=== PATIENT | female | born 1970 | race Two or more races ===

== ENCOUNTER 2016-03-10 11:12 | Emergency (ER) | payer MEDICAID ==
[~2016-03-10] VITALS: Ht 152.4 cm; Wt 67.1 kg
[2016-03-10 11:58] LABS: BASOPHILS % (AUTO) 0.5 % (0.0-2.0); DIFF TOTAL % 100 %; EOSINOPHILS # (AUTO) 0.1 /CMM (0.0-0.7); EOSINOPHILS % (AUTO) 2.3 % (0.0-6.0); HEMATOCRIT 39 % (33-45); HEMOGLOBIN 13.2 g/dL (11.5-14.8); LYMPHOCYTES # (AUTO) 1.4 /CMM (0.8-4.8); LYMPHOCYTES % (AUTO) 30.9 % (20.0-44.0); MEAN CORPUSCULAR HEMOGLOBIN 28 PG (26.0-33.0); MEAN CORPUSCULAR HGB CONC 34 g/dl (31.0-36.0); MEAN CORPUSCULAR VOLUME 84 fL (82-100); MONOCYTES # (AUTO) 0.4 /CMM (0.1-1.30); MONOCYTES % (AUTO) 7.9 % (2.0-12.0); NEUTROPHILS # (AUTO) 2.6 /CMM (1.8-8.9); NEUTROPHILS % (AUTO) 58.4 % (43.0-81.0); PLATELET COUNT (AUTO) 246 /CMM (150-450); RED BLOOD CELL COUNT(AUTO) 4.65 MIL/uL (4.0-5.2); WHITE BLOOD COUNT (AUTO) 4.5 K/uL (4.3-11.0)
[2016-03-10 12:01] LABS: CALCIUM, SERUM 9.1 mg/dL (8.5-10.1); CREATININE 0.7 mg/dL (0.6-1.3); POTASSIUM 3.8 mmol/L (3.5-5.1)
[2016-03-10 12:07] LABS: ALBUMIN 3.7 g/dL (3.4-5.0); BILIRUBIN,DIRECT 0.1 mg/dL (0.0-0.2); BILIRUBIN,TOTAL 0.3 mg/dL (0.2-1.0); INDIRECT BILIRUBIN 0.2 mg/dL (0.0-1.1); TOTAL PROTEIN, SERUM 7.4 g/dL (6.4-8.2)
[2016-03-10 12:23] LABS: KETONES,URINE Negative (NEGATIVE); LEUKOCYTE ESTERASE ,URINE Negative (NEGATIVE); PREGNANCY TEST URINE QUAL NEGATIVE (NEGATIVE)
[2016-03-10 12:28] LABS: ADD UA MICROSCOPIC YES
[2016-03-10 12:36] LABS: ADD URINE CULTURE NO; RBC,URINE 0-2 /HPF (0-2); WBC,URINE 0-2 /HPF (0-3)
[2016-03-10 14:02] VITALS: BP 138/70
== END 2016-03-10 14:02 | disposition home or self-care (01) ==
LOC: ER 11:15
DX: R10.30 Lower abdominal pain, unspecified (principal); E03.9 Hypothyroidism, unspecified; F10.20 Alcohol dependence, uncomplicated
CPT/HCPCS: 36415; 80048-TC; 80076-TC; 81000-TC; 83690-TC; 84703-TC; 85025-TC; A4606; Z7610

== ENCOUNTER 2016-03-14 13:21 | Emergency (ER) | payer MEDICAID ==
[~2016-03-14] VITALS: Ht 152.4 cm; Wt 67.1 kg
[2016-03-14 13:27] VITALS: BP 141/87
[2016-03-14] MEDS ORDERED: ACETAMINOPHEN ES 500 MG TABLET ONE (13:40)
[2016-03-14] MEDS ORDERED: ACETAMINOPHEN ES 500 MG TABLET PO ONE (14:00)
== END 2016-03-14 14:44 | disposition home or self-care (01) ==
LOC: ER 13:23
DX: J11.1 Influenza due to unidentified influenza virus with other respiratory manifestations (principal); E05.90 Thyrotoxicosis, unspecified without thyrotoxic crisis or storm
CPT/HCPCS: 87804 ×2; 99284; A4606; Z7610; 87400

== ENCOUNTER 2016-04-15 17:43 | Emergency (ER) | payer SELFPAY ==
[~2016-04-15] VITALS: Ht 152.4 cm; Wt 68.9 kg
[2016-04-15 17:57] VITALS: BP 132/68
[2016-04-15] MEDS ORDERED: diphenhydrAMINE HCL 50 MG CAPSULE ONE (18:30)
[2016-04-15] MEDS ORDERED: FAMOTIDINE (20 MG) 20 MG TABLET ONE (18:30)
[2016-04-15] MEDS ORDERED: predniSONE 20 MG TABLET ONE (18:30)
[2016-04-15] MEDS ORDERED: predniSONE 20 MG TABLET PO ONE (18:30)
[2016-04-15] MEDS ORDERED: FAMOTIDINE (20 MG) 20 MG TABLET PO ONE (18:30)
[2016-04-15] MEDS ORDERED: diphenhydrAMINE HCL 25 MG CAPSULE PO ONE (18:30)
== END 2016-04-15 18:48 | disposition home or self-care (01) ==
LOC: ER 17:46
DX: T78.40XA Allergy, unspecified, initial encounter (principal); E05.90 Thyrotoxicosis, unspecified without thyrotoxic crisis or storm; X58.XXXA Exposure to other specified factors, initial encounter
CPT/HCPCS: 99284; A4606; J7512; Q0163; Z7610

== ENCOUNTER 2016-06-20 07:49 | Emergency (ER) | payer SELFPAY ==
[~2016-06-20] VITALS: Ht 152.4 cm; Wt 68.0 kg
--- NOTE | 2016-06-20 08:00 | NUR ---
PT TO ED ROOM 05. COUGH, CONGESTION, AND BODY ACHES SINCE LAST NIGHT. A/A/O. AMBULATORY. SIDE RAISL UP. HOB ELEVATED. CONNECTED TO MONITOR. FACE MASK +. POSSIBLE Hx OF TB. CONNECTED TO MONITOR. SEEN AND EVALUATED BY ED PROVIDER.
--- NOTE | 2016-06-20 08:23 | NUR ---
DR. DANIEL HOROWITZ CALLED .
--- NOTE | 2016-06-20 08:25 | NUR ---
PAGED DR. CHAVEZ
[2016-06-20] MEDS ORDERED: HYDR25TA4 PO (09:10)
[2016-06-20] MEDS ORDERED: ISON300T27 PO (09:10)
[2016-06-20] MEDS ORDERED: PYRI50TA74 PO (09:10)
[2016-06-20 09:34] LABS: BASOPHILS % (AUTO) 0.5 % (0.0-2.0); EOSINOPHILS # (AUTO) 0.3 /CMM (0.0-0.7); EOSINOPHILS % (AUTO) 6.2 % (0.0-6.0); HEMATOCRIT 42 % (33-45); HEMOGLOBIN 13.9 g/dL (11.5-14.8); LYMPHOCYTES # (AUTO) 1.6 /CMM (0.8-4.8); LYMPHOCYTES % (AUTO) 31.6 % (20.0-44.0); MEAN CORPUSCULAR HEMOGLOBIN 28 PG (26.0-33.0); MEAN CORPUSCULAR HGB CONC 33 g/dl (31.0-36.0); MEAN CORPUSCULAR VOLUME 84 fL (82-100); MONOCYTES # (AUTO) 0.4 /CMM (0.1-1.30); MONOCYTES % (AUTO) 7.7 % (2.0-12.0); NEUTROPHILS # (AUTO) 2.9 /CMM (1.8-8.9); PLATELET COUNT (AUTO) 295 /CMM (150-450); RDW COEFFICIENT OF VARIATION 12.3 (11.5-15.0); RED BLOOD CELL COUNT(AUTO) 4.99 MIL/uL (4.0-5.2); WHITE BLOOD COUNT (AUTO) 5.2 K/uL (4.3-11.0)
[2016-06-20 09:48] LABS: CALCIUM, SERUM 8.8 mg/dL (8.5-10.1); CREATININE 0.7 mg/dL (0.6-1.3); POTASSIUM 3.6 mmol/L (3.5-5.1)
--- NOTE | 2016-06-20 10:01 | NUR ---
Patient discharged to home in stable condition. Written and verbal after care instructions given. Patient verbalizes understanding of instruction.IV removed. Catheter intact and site benign. Pressure and 4x4 applied to site. No bleeding noted. ambulatory with a steady gait.
[2016-06-20 10:09] VITALS: BP 142/85
== END 2016-06-20 10:09 | disposition home or self-care (01) ==
LOC: ER 07:55
DX: J45.909 Unspecified asthma, uncomplicated (principal); R05 Cough; A15.9 Respiratory tuberculosis unspecified; E05.90 Thyrotoxicosis, unspecified without thyrotoxic crisis or storm; I10 Essential (primary) hypertension
CPT/HCPCS: 36415; 71010-TC; 80048-TC; 85025-TC; A4606; Z7610

== ENCOUNTER 2020-11-17 14:49 | Emergency (ER) | payer BC ==
[~2020-11-17] VITALS: Ht 152.4 cm; Wt 68.0 kg
[~2020-11-17 14:49] MED LIST: HYDR25TA4 PO; ISON300T27 PO; PYRI50TA15 PO
--- NOTE | 2020-11-17 15:15 | NUR ---
STARTED RAC G 18, BLOOD SPECIMEN COLLECTED AND SENT TO THE LAB. THE LINE IS SALINE LOCKED.
--- NOTE | 2020-11-17 15:16 | NUR ---
THE PATIENT BIB FOR C/O HEADACHE, FACIAL TINGLING SENSATION, HIGH B/P X 5 DAYS. RATES HEADACHE 05/25. DENIES SOB. IN ROOM AIR. RESPIRATION REGULAR AND UNLABORED. ATTACHED TO THE MONITOR. WARM BLANKET PROVIDED FOR COMFORT. WILL CONTINUE TO MONITOR THE PATIENT.
[2020-11-17] MEDS ORDERED: METF-440 PO (15:26)
[2020-11-17] MEDS ORDERED: LOSA25TA27 PO (15:26)
[2020-11-17] MEDS ORDERED: TRIA1TAB3 PO (15:26)
[2020-11-17] MEDS ORDERED: hydrALAZINE HCL IV 20 MG VIAL IV ONE (15:30)
[2020-11-17] MEDS ORDERED: AMLODIPINE BESYLATE 5 MG TABLET PO ONE (15:30)
[2020-11-17] MEDS ORDERED: hydrALAZINE HCL IV 20 MG VIAL ONE (15:33)
[2020-11-17] MEDS ORDERED: AMLODIPINE BESYLATE 5 MG TABLET ONE (15:34)
[2020-11-17 15:50] LABS: BASOPHILS % (AUTO) 0.5 % (0.0-2.0); EOSINOPHILS % (AUTO) 2.3 % (0.0-6.0); HEMATOCRIT 42 % (33-45); LYMPHOCYTES # (AUTO) 2.2 K/uL (0.8-4.8); LYMPHOCYTES % (AUTO) 29.7 % (20.0-44.0); MEAN CORPUSCULAR HGB CONC 34 g/dl (31.0-36.0); MEAN CORPUSCULAR VOLUME 83 fL (82-100); MONOCYTES # (AUTO) 0.5 K/uL (0.1-1.30); MONOCYTES % (AUTO) 6.1 % (2.0-12.0); NEUTROPHILS # (AUTO) 4.5 K/uL (1.8-8.9); NEUTROPHILS % (AUTO) 61.4 % (43.0-81.0); PLATELET COUNT (AUTO) 307 K/uL (150-450); WHITE BLOOD COUNT (AUTO) 7.4 K/uL (4.3-11.0)
[2020-11-17 16:02] LABS: ALBUMIN 3.6 g/dL (3.4-5.0); BILIRUBIN,DIRECT 0.1 mg/dL (0.0-0.2); BILIRUBIN,TOTAL 0.3 mg/dL (0.2-1.0); CALCIUM, SERUM 9.1 mg/dL (8.5-10.1); CREATININE 0.8 mg/dL (0.6-1.3); POTASSIUM 3.6 mmol/L (3.5-5.1)
[2020-11-17 16:10] LABS: THYROID STIMULATING HORMONE 3.439 uIU/mL (0.358-3.74)
[2020-11-17] MEDS ORDERED: AMLO-212 PO (16:37)
[2020-11-17] MEDS ORDERED: ONDA4TAB5 PO (16:37)
[2020-11-17] MEDS ORDERED: ONDANSETRON HCL/PF 4 MG/2 ML VIAL ONE (16:39)
[2020-11-17] MEDS ORDERED: ONDANSETRON HCL/PF 4 MG/2 ML VIAL IV ONE (17:00)
[2020-11-17] MEDS ORDERED: IV NS 0.9% 500 ML BAG IV ONE (17:00)
[2020-11-17 17:10] VITALS: BP 130/90
--- NOTE | 2020-11-17 17:10 | NUR ---
IV removed. Catheter intact and site benign. Pressure and 4x4 applied to site. No bleeding noted.Patient discharged to home in stable condition. Written and verbal after care instructions given. Patient verbalizes understanding of instruction.
== END 2020-11-17 17:14 | disposition home or self-care (01) ==
LOC: ER 14:55
DX: R11.0 Nausea (principal); I10 Essential (primary) hypertension; E05.90 Thyrotoxicosis, unspecified without thyrotoxic crisis or storm; Z79.899 Other long term (current) drug therapy
CPT/HCPCS: 36415; 80048; 80076; 84439; 84443; 85025; 93005; 96361; 96374; 96375; 99284; J0360; J2405; J7040

== ENCOUNTER 2020-12-12 15:40 | Emergency (ER) | payer BC ==
[~2020-12-12] VITALS: Ht 152.4 cm; Wt 64.4 kg
[~2020-12-12 15:40] MED LIST changes: +AMLO-212 PO; -HYDR25TA4 PO; -ISON300T27 PO; +LOSA25TA27 PO; +METF-440 PO; +ONDA4TAB5 PO; -PYRI50TA15 PO; +TRIA1TAB3 PO
[2020-12-12 16:54] LABS: ALBUMIN 3.5 g/dL (3.4-5.0); BILIRUBIN,DIRECT 0.1 mg/dL (0.0-0.2); BILIRUBIN,TOTAL 0.1 mg/dL (0.2-1.0); CALCIUM, SERUM 9.2 mg/dL (8.5-10.1); CREATININE 0.8 mg/dL (0.6-1.3); POTASSIUM 3.6 mmol/L (3.5-5.1)
[2020-12-12] MEDS ORDERED: KETOROLAC TROMETHAMINE INJ 30 MG/ML VIAL ONE (16:57)
[2020-12-12] MEDS ORDERED: ONDANSETRON HCL/PF 4 MG/2 ML VIAL ONE (16:57)
[2020-12-12] MEDS ORDERED: IV NS 0.9% 1,000 ML BAG IV ONE (17:00)
[2020-12-12] MEDS ORDERED: ONDANSETRON HCL/PF 4 MG/2 ML VIAL IVP ONE (17:00)
[2020-12-12] MEDS ORDERED: KETOROLAC TROMETHAMINE INJ 30 MG/ML VIAL IV ONE (17:00)
[2020-12-12 17:07] LABS: BASOPHILS % (AUTO) 0.5 % (0.0-2.0); EOSINOPHILS % (AUTO) 1.6 % (0.0-6.0); HEMATOCRIT 39 % (33-45); HEMOGLOBIN 13.1 g/dL (11.5-14.8); LYMPHOCYTES # (AUTO) 2.2 K/uL (0.8-4.8); LYMPHOCYTES % (AUTO) 28.1 % (20.0-44.0); MEAN CORPUSCULAR HGB CONC 34 g/dl (31.0-36.0); MEAN CORPUSCULAR VOLUME 81 fL (82-100); MONOCYTES # (AUTO) 0.7 K/uL (0.1-1.30); MONOCYTES % (AUTO) 8.8 % (2.0-12.0); NEUTROPHILS # (AUTO) 4.8 K/uL (1.8-8.9); PLATELET COUNT (AUTO) 317 K/uL (150-450); RED BLOOD CELL COUNT(AUTO) 4.76 MIL/uL (4.0-5.2); WHITE BLOOD COUNT (AUTO) 7.8 K/uL (4.3-11.0)
[2020-12-12 17:29] LABS: BILIRUBIN,URINE Negative (NEGATIVE); COLOR,URINE YELLOW (YELLOW); LEUKOCYTE ESTERASE ,URINE Negative (NEGATIVE); NITRITE, URINE Negative (NEGATIVE); PROTEIN,URINE Negative (NEGATIVE); UGLUCOSE Negative (NEGATIVE); UROBILINOGEN,URINE 0.2 EU/dL (0.2)
[2020-12-12 17:53] LABS: BACTERIA,URINE Few /HPF (None Seen); MUCUS,URINE Few /LPF (None Seen); SQUAMOUS EPITHELIAL CELL,UR Few /HPF (None Seen); WBC,URINE 0-2 /HPF (0-3)
[2020-12-12] MEDS ORDERED: CT SWABBABLE VALVE TRANS SET 1 EA INFUS.SET MC ONE (17:58)
[2020-12-12] MEDS ORDERED: IV NS 0.9% 250 ML IV ONE (17:58)
[2020-12-12] MEDS ORDERED: IOHEXOL-300 100 ML VIAL IV ONE (17:58)
[2020-12-12] MEDS ORDERED: MORPHINE SULFATE INJ 2 MG/ML DISP.SYRIN IV ONE (18:00)
[2020-12-12] MEDS ORDERED: MORPHINE SULFATE INJ 2 MG/ML DISP.SYRIN ONE (18:18)
[2020-12-12] MEDS ORDERED: ACET-2605 PO (18:29)
[2020-12-12] MEDS ORDERED: TRAM50TA2 PO (18:29)
[2020-12-12] MEDS ORDERED: ONDA4TAB5 PO (18:29)
[2020-12-12 18:43] VITALS: BP 122/82
--- NOTE | 2020-12-16 11:46 | NUR ---
LATE ENTRY: IVF, NS [place] START TIME 170-END TIME 180(12/12/2020)
== END 2020-12-12 18:44 | disposition home or self-care (01) ==
LOC: ER 15:47
DX: R10.31 Right lower quadrant pain (principal); I10 Essential (primary) hypertension; E05.90 Thyrotoxicosis, unspecified without thyrotoxic crisis or storm; Z79.899 Other long term (current) drug therapy
CPT/HCPCS: 36415; 74177; 80048; 80076; 81001; 83690; 85025; 96361; 96374; 96375; 99285; J1885; J2270; J2405; J7030 ×2; J7050; Q9967